=== PATIENT | female | born 1960 | race Caucasian/White ===

== ENCOUNTER 2024-01-26 15:36 | Outpatient (REF) | payer MEDICARE, MEDICAID, SELFPAY ==
[2024-01-26 18:01] LABS: MANUAL DIFF FLAG NO
[2024-01-26 18:14] LABS: Basophils Absolute Auto 0.1 X10*3/uL (0.0-0.2); Basophils Percent Auto 0.8 % (0-2); Eosinophils Absolute Auto 0.1 X10*3/uL (0.0-0.4); Eosinophils Percent Auto 1.2 % (0-4); Hematocrit 40.7 % (37.0-47.0); Hemoglobin 13.7 g/dl (12.0-16.0); Imm Gran Abs Auto 0.01 X10*3/uL (0.00-0.03); Imm Gran Pct Auto 0.2 % (0.0-0.4); Lymphocytes Absolute Auto 2.2 X10*3/uL (1.2-4.9); Lymphocytes Percent Auto 36.4 % (20-40); Mean Corpuscular HGB Conc 33.7 g/dl (31.0-35.0); Mean Corpuscular Hemoglobin 30.2 pg (27.0-33.0); Mean Corpuscular Volume 89.8 fL (80.0-98.0); Mean Platelet Volume 11.1 fL (9.4-12.3); Monocytes Absolute Auto 0.4 X10*3/uL (0.1-1.2); Monocytes Percent Auto 7.3 % (2-11); Neutrophils Absolute Auto 3.3 x10*3/uL (2.0-8.3); Neutrophils Percent Auto 54.1 % (45-73); Platelet Count 213 X10*3/uL (160-400); Red Blood Count 4.53 X10*6/uL (4.20-5.50); Red Cell Distribution Width 12.3 % (11.0-16.0)
[2024-01-26 18:46] LABS: Erythrocyte Sedimentation Rate 5 MM/HR (0-20)
[2024-01-26 19:24] LABS: Uric Acid 5.2 mg/dL (2.4-5.7)
== END 2024-01-26 15:37 | disposition home or self-care (01) ==
LOC: HO.MANLDS 15:36
PROVIDERS: Visit Provider Physician Assistant
DX: M79.644 Pain in right finger(s) (principal)
CPT/HCPCS: 36415; 84550; 85025; 85652; 86140